=== PATIENT | female | born 1955 | race Hispanic/Latino ===

== ENCOUNTER 2017-05-08 10:25 | Outpatient (CLI) | payer OTHER ==
--- NOTE | 2017-05-08 11:08 | XRay Report ---
CHEST 2 VIEWS INDICATION: Cough. COMPARISON: 04/20/2015 FINDINGS: PA and lateral chest radiographs demonstrate stable cardiomediastinal silhouette. Right hemidiaphragm mildly elevated with minimal right lung base bronchovascular crowding. Otherwise unremarkable lungs. Intact bones. CONCLUSION: No acute chest process or significant interval change, as described. Thank you for the opportunity to participate in this patient's care.
== END 2017-05-08 10:26 | disposition home or self-care (01) ==
LOC: SPVIMAG 10:25
PROVIDERS: ATTEND Internal Medicine
DX: R05 Cough (principal); J98.6 Disorders of diaphragm
CPT/HCPCS: 71046